=== PATIENT | male | born 1965 | race Caucasian/White ===

== ENCOUNTER 2020-12-06 06:36 | Emergency (ER) | payer BC ==
[2020-12-06 07:37] LABS: Absolute Lymphocytes (CBC) 1.5 K/uL (0.7-4.9); Basophils % 0.6 % (0-1.3); Hematocrit 46.1 % (39.6-49.0); Lymphocytes % 22.2 % (15.3-44.8); MPV 7.6 fL (7.6-11.3); RBC Red Blood Cell Count 5.21 M/uL (4.33-5.43)
[2020-12-06 07:56] LABS: Bilirubin Direct 0.2 mg/dL (0-0.2); Bilirubin Total 0.8 mg/dL (0.2-1.0); Potassium 4.4 mmol/L (3.5-5.1); Protein, Total 7.5 g/dL (6.4-8.2)
[2020-12-06] MEDS ORDERED: ONDANSETRON 4 MG/2 ML VIAL ONE (08:00)
[2020-12-06] MEDS ORDERED: NA CHLORIDE 0.9% 1,000 ML ONE ×2 (08:00→09:49)
[2020-12-06] MEDS ORDERED: FAMOTIDINE 20 MG/2 ML VIAL IV ONE (08:00)
--- NOTE | 2020-12-06 08:33 | RAD REPORT ---
EXAM DESCRIPTION: CT - Abdomen Pelvis W Contrast - 12/06/2020 8:15 am CLINICAL HISTORY: Abdominal pain COMPARISON: none. TECHNIQUE: Computed axial tomography of the abdomen pelvis was obtained. 100 cc Isovue-300 was admin istered intravenously. Oral contrast was not requested which limits evaluation of bowel. All CT scans are performed using dose optimization technique as appropriate and may include automated exposure control or mA/KV adjustment according to patient size. FINDINGS: A 5 millimeter nodule anterior left lung base. Several tiny bilateral lung nodules Several vague low to intermediate density hepatic lesions. These vary in size from a few millimeters to 9 millimeters. Spleen, pancreas, adrenal and kidneys appear unremarkable. There is no evidence of diverticulitis. An abnormal appendix is not seen. Borderline gallbladder distention. Small hiatal hernia. Apparent thickening of the wall of the distal stomach. Small umbilical hernia IMPRESSION: Borderline gallbladder distention Several small hepatic lesions are nonspecific. Further evaluation with unenhanced and enhanced MRI on another day recommended. Small bilateral lung nodules. These may represent metastases or granulomas. Followup CT chest in 3 mo [facility] recommended Apparent thickening of the wall of the distal stomach may be secondary to inflammation or incomplete distention
--- NOTE | 2020-12-06 08:33 | RAD REPORT ---
EXAM DESCRIPTION: Claudio Single View12/06/2020 7:38 am CLINICAL HISTORY: Congestion COMPARISON: none FINDINGS: Small bilateral lung nodules. The heart is normal size IMPRESSION: Small bilateral lung nodules. Please refer to CT report on the same date for recommendat ion
--- NOTE | 2020-12-06 11:33 | EDPHYS ---
Physician Documentation [facility] Name: Raudel Anderson Age: 55 yrs Sex: Male : 1965 Arrival Date: 12/06/2020 Time: 06:43 Bed 16 Private MD: ED Physician Sina Blanchard HPI: 12/06 07:15 This 55 yrs old Male presents to ER via Ambulatory with complaints of kdr Vomiting. 07:15 The patient presents to the emergency department with nausea, that is mild, abdominal kdr pain, of the epigastric area, right upper quadrant and left upper quadrant. 07:16 The patient presents to the emergency department with vomiting, that is intermittent. kdr Onset: The symptoms/episode began/occurred gradually, 1 week(s) ago. Possible causes: unknown. The symptoms are aggravated by nothing. The symptoms are alleviated by nothing. Associated signs and symptoms: Pertinent positives: abdominal pain, nausea, vomiting. Severity of symptoms: At their worst the symptoms were mild moderate just prior to arrival, in the emergency department the symptoms are unchanged. The patient has not experienced similar symptoms in the past. The patient has not recently seen a physician. Patient had 3 glasses of orange juice this morning otherwise he has not eaten much for the last few days. He denies black tarry stools or or bloody stools. Historical: - Allergies: 06:53 No Known Allergies; df1 - Home Meds: 06:53 Unable to obtain [Active]; df1 - PMHx: 06:53 None; df1 - Immunization history:: Client reports receiving the 1st dose of the Covid vaccine. - Social history:: Smoking status: Patient denies any tobacco usage or history of. Patient/guardian denies using alcohol, street drugs. ROS: 07:16 Constitutional: Negative for fever, chills, and weight loss, Eyes: Negative for injury, kdr pain, redness, and discharge, ENT: Negative for injury, pain, and discharge, Neck: Negative for injury, pain, and swelling, Cardiovascular: Negative for chest pain, palpitations, and edema, Back: Negative for injury and pain, : Negative for injury, bleeding, discharge, and swelling, MS/Extremity: Negative for injury and deformity, Skin: Negative for injury, rash, and discoloration, Neuro: Negative for headache, weakness, numbness, tingling, and seizure activity. 07:16 Respiratory: Positive for dyspnea on exertion, shortness of breath, wheezing, Negative for hemoptysis, orthopnea, pleurisy. 07:16 Respiratory: Positive for hemoptysis. 07:16 Abdomen/GI: Positive for abdominal pain, nausea and vomiting, nausea, vomiting, Negative for constipation, abdominal cramps, abdominal distension, anorexia, dysphagia, black/tarry stool, rectal pain, rectal bleeding. Exam: 07:26 Constitutional: This is a well developed, well nourished patient who is awake, alert, kdr and in no acute distress. Head/Face: Normocephalic, atraumatic. Eyes: Pupils equal round and reactive to light, extra-ocular motions intact. Lids and lashes normal. Conjunctiva and sclera are non-icteric and not injected. Cornea within normal limits. Periorbital areas with no swelling, redness, or edema. Neck: Trachea midline, no thyromegaly or masses palpated, and no cervical lymphadenopathy. Supple, full range of motion without nuchal rigidity, or vertebral point tenderness. No Meningismus. Chest/axilla: Normal chest wall appearance and motion. Nontender with no deformity. No lesions are appreciated. Cardiovascular: Regular rate and rhythm with a normal S1 and S2. No gallops, murmurs, or rubs. Normal PMI, no JVD. No pulse deficits. Back: No spinal tenderness. No costovertebral tenderness. Full range of motion. Skin: Warm, dry with normal turgor. Normal color with no rashes, no lesions, and no evidence of cellulitis. MS/ Extremity: Pulses equal, no cyanosis. Neurovascular intact. Full, normal range of motion. Neuro: Awake and alert, GCS 15, oriented to person, place, time, and situation. Cranial nerves II-XII grossly intact. Motor strength 5/5 in all extremities. Sensory grossly intact. Cerebellar exam normal. Normal gait. Psych: Awake, alert, with orientation to person, place and time. Behavior, mood, and affect are within normal limits. 07:26 Respiratory: the patient does not display signs of respiratory distress, Respirations: normal, Breath sounds: rales, rhonchi, that are mild, are located in both bases. Vital Signs: 06:50 BP 114 / 99; Pulse 135; Resp 18; Temp 99.1; Pulse Ox 100% ; Weight 72.57 kg; Height 6 df1 ft. 3 in. (190.50 cm); Pain 5/10; 07:26 BP 111 / 98; Pulse 114; Resp 18; Temp 99.1; Pulse Ox 98% on R/A; aj2 07:41 BP 114 / 93 Supine; Pulse 107; kj1 07:41 BP 113 / 92 Sitting; Pulse 109; kj1 07:41 BP 109 / 84 Standing; Pulse 129; kj1 07:52 BP 126 / 90; Pulse 97; Resp 18; Temp 99.1; Pulse Ox 98% ; aj2 08:50 BP 138 / 101; Pulse 91; Resp 16; Temp 99.1; Pulse Ox 99% ; aj2 09:16 BP 124 / 93 Supine; Pulse 87; Resp 18; Temp 99.1; Pulse Ox 100% ; aj2 09:16 BP 120 / 98 Sitting; Pulse 97; Resp 18; Temp 99.1; Pulse Ox 100% ; aj2 09:16 BP 107 / 91 Standing; Pulse 120; Resp 18; Temp 99.1; Pulse Ox 100% ; aj2 10:38 BP 123 / 95 Supine; Pulse 101; Resp 18; aj2 10:38 BP 121 / 96 LA Sitting (man/reg); Pulse 105; Resp 18; aj2 10:38 BP 102 / 90 Standing; Pulse 123; Resp 18; aj2 12:41 BP 119 / 90; Pulse 84; Resp 18; Temp 98.3; Pulse Ox 100% ; aj2 13:15 BP 147 / 94; Pulse 83; Resp 20; Pulse Ox 100% ; kg 06:50 Body Mass Index 20.00 (72.57 kg, 190.50 cm) df1 MDM: 07:26 Data reviewed: vital signs, nurses notes, lab test result(s), radiologic studies. kdr Counseling: I had a detailed discussion with the patient and/or guardian regarding: the historical points, exam findings, and any diagnostic results supporting the discharge/admit diagnosis, lab results, radiology results. 11:32 Patient medically screened. kdr 12/06 07:13 Order name: Basic Metabolic Panel; Complete Time: 08:30 kdr 12/06 07:13 Order name: CBC with Diff; Complete Time: 08:30 kdr 12/06 07:13 Order name: Hepatic Function; Complete Time: 08:30 kdr 12/06 07:13 Order name: Lipase; Complete Time: 08:30 kdr 12/06 07:14 Order name: Type And Screen; Complete Time: 11:03 kdr 12/06 07:14 Order name: CXR XRAY; Complete Time: 08:55 kdr 12/06 07:14 Order name: CT Abd/Pelvis - IV Contrast Only; Complete Time: 08:55 kdr 12/06 07:41 Order name: D-Dimer kdr 12/06 07:42 Order name: D-Dimer; Complete Time: 08:55 EDMS 12/06 09:11 Order name: SARS-COV-2 RT PCR; Complete Time: 09:45 EDMS 12/06 07:13 Order name: IV Saline Lock; Complete Time: 07:33 kdr 12/06 07:13 Order name: Labs collected and sent; Complete Time: 07:33 kdr 12/06 07:13 Order name: Orthostatic Blood Pressure; Complete Time: 07:41 kdr 12/06 08:57 Order name: Orthostatics: Repeat orthostatics post fluid bolus ; Complete Time: 09:23 kdr Administered Medications: 07:32 Drug: Pepcid (famotidine) 20 mg Route: IVP; Site: left antecubital; aj2 13:23 Follow up: Response: No adverse reaction kg 07:33 Drug: NS 0.9% 1000 ml Route: IV; Rate: 1 bolus; Site: left antecubital; aj2 07:33 Drug: Zofran (Ondansetron) 4 mg Route: IVP; Site: left antecubital; aj2 13:23 Follow up: Response: No adverse reaction kg 09:23 Drug: NS 0.9% 1000 ml Route: IV; Rate: 1 bolus; Site: left antecubital; aj2 13:00 Follow up: Response: No adverse reaction; Marked relief of symptoms; IV Status: kg Completed infusion; IV Intake: 500ml 12:18 Drug: NS 0.9% 500 ml Route: IV; Rate: bolus; Site: left antecubital; aj2 13:22 Follow up: Response: No adverse reaction; IV Status: Completed infusion; IV Intake: kg 500ml Disposition Summary: 12/06/20 11:32 Discharge Ordered Location: Home kdr Problem: new kdr Symptoms: have improved kdr Condition: Stable kdr Diagnosis - Weakness kdr - Dehydration kdr - Vomiting kdr - Nausea with vomiting, unspecified kdr - Abdominal pain, Generalized kdr Followup: kdr - With: Private Physician - When: 2 - 3 days - Reason: If symptoms return, Further diagnostic work-up, Recheck today's complaints, Continuance of care, Re-evaluation by your physician Discharge Instructions: - Discharge Summary Sheet kdr - Nausea and Vomiting, Adult, [id number] kdr - Weakness, [id number] kdr - Abdominal Pain, Adult, [id number] kdr Forms: - Medication Reconciliation Form kdr - Thank You Letter kdr - Work release form iw Prescriptions: - Zofran 4 mg Oral Tablet - take 1 tablet by ORAL route every 4-6 hours As needed; 20 tablet; Refills: 0, kdr Product Selection Permitted - Pepcid 20 mg Oral Tablet - take 1 tablet by ORAL route once daily; 20 tablet; Refills: 0, Product kdr Selection Permitted Signatures: Dispatcher [employer] EDSina Bennett MD MD kdr Bill Caldwell Uyen Zazueta df1 Nydia Butts RN kg Corrections: (The following items were deleted from the chart) 08:13 07:16 CORONAVIRUS+.BRZ ordered. EDAZ EDMS
--- NOTE | 2020-12-06 11:33 | ER ---
Nurse's Notes [facility] Name: Raudel Anderson Age: 55 yrs Sex: Male : 1965 Arrival Date: 12/06/2020 Time: 06:43 Bed 16 Private MD: Diagnosis: Weakness;Dehydration;Vomiting;Nausea with vomiting, unspecified;Abdominal pain, Generalized Presentation: 12/06 06:50 Chief complaint: Patient states: vomiting x 4 days. Coronavirus screen: Vaccine status: df1 Patient reports receiving the 1st dose of the Covid vaccine. The client reports previous COVID testing was negative. Ebola Screen: Patient negative for fever greater than or equal to 101.5 degrees Fahrenheit, and additional compatible Ebola Virus Disease symptoms. Risk Assessment: Do you want to hurt yourself or someone else? Patient reports no desire to harm self or others. Note Pt states vomiting and lower abd pain x 4 days. Last Covid test negative in October/2020. 06:50 Method Of Arrival: Ambulatory df1 06:50 Acuity: VAN 3 df1 13:17 Initial Sepsis Screen: Does the patient meet any 2 criteria? No. Patient's initial kg sepsis screen is negative. Does the patient have a suspected source of infection? No. Patient's initial sepsis screen is negative. Onset of symptoms was December 02, 2020. Triage Assessment: 13:17 General: Appears in no apparent distress. General: Appears in no apparent distress. kg Behavior is calm, cooperative, appropriate for age, quiet. GI: Reports nausea, vomiting. Historical: - Allergies: 06:53 No Known Allergies; df1 - Home Meds: 06:53 Unable to obtain [Active]; df1 - PMHx: 06:53 None; df1 - Immunization history:: Client reports receiving the 1st dose of the Covid vaccine. - Social history:: Smoking status: Patient denies any tobacco usage or history of. Patient/guardian denies using alcohol, street drugs. Screenin:26 Abuse screen: Denies threats or abuse. Denies injuries from another. Nutritional aj2 screening: No deficits noted. Tuberculosis screening: No symptoms or risk factors identified. Fall Risk None identified. Assessment: 07:26 General: Appears in no apparent distress. comfortable, Behavior is calm, cooperative, aj2 appropriate for age. Pain: Complains of pain in right upper quadrant and left upper quadrant Pain does not radiate. Pain currently is 5 out of 10 on a pain scale. Quality of pain is described as crampy, dull, Pain began 1 day ago. Is continuous, Alleviated by nothing. Aggravated by increased activity. GI: Abdomen is flat. 08:07 Reassessment: \T\ CT. aj2 08:50 Reassessment: Patient appears in no apparent distress at this time. Patient and/or aj2 family updated on plan of care and expected duration. Pain level reassessed. Patient is alert, oriented x 3, equal unlabored respirations, skin warm/dry/pink. Patient states symptoms have not improved. 08:50 General: Appears in no apparent distress. Behavior is calm, cooperative. aj2 09:16 Reassessment: Sitting up eating saltine crackers and 4oz of cranberry juice.; well aj2 tolerated. . 12:41 Reassessment: Patient appears in no apparent distress at this time. Patient and/or aj2 family updated on plan of care and expected duration. Pain level reassessed. Patient is alert, oriented x 3, equal unlabored respirations, skin warm/dry/pink. Patient states feeling better. 12:41 Reassessment: Patient states feeling better. aj2 Vital Signs: 06:50 BP 114 / 99; Pulse 135; Resp 18; Temp 99.1; Pulse Ox 100% ; Weight 72.57 kg; Height 6 df1 ft. 3 in. (190.50 cm); Pain 5/10; 07:26 BP 111 / 98; Pulse 114; Resp 18; Temp 99.1; Pulse Ox 98% on R/A; aj2 07:41 BP 114 / 93 Supine; Pulse 107; kj1 07:41 BP 113 / 92 Sitting; Pulse 109; kj1 07:41 BP 109 / 84 Standing; Pulse 129; kj1 07:52 BP 126 / 90; Pulse 97; Resp 18; Temp 99.1; Pulse Ox 98% ; aj2 08:50 BP 138 / 101; Pulse 91; Resp 16; Temp 99.1; Pulse Ox 99% ; aj2 09:16 BP 124 / 93 Supine; Pulse 87; Resp 18; Temp 99.1; Pulse Ox 100% ; aj2 09:16 BP 120 / 98 Sitting; Pulse 97; Resp 18; Temp 99.1; Pulse Ox 100% ; aj2 09:16 BP 107 / 91 Standing; Pulse 120; Resp 18; Temp 99.1; Pulse Ox 100% ; aj2 10:38 BP 123 / 95 Supine; Pulse 101; Resp 18; aj2 10:38 BP 121 / 96 LA Sitting (man/reg); Pulse 105; Resp 18; aj2 10:38 BP 102 / 90 Standing; Pulse 123; Resp 18; aj2 12:41 BP 119 / 90; Pulse 84; Resp 18; Temp 98.3; Pulse Ox 100% ; aj2 13:15 BP 147 / 94; Pulse 83; Resp 20; Pulse Ox 100% ; kg 06:50 Body Mass Index 20.00 (72.57 kg, 190.50 cm) df1 ED Course: 06:43 Patient arrived in ED. bp1 06:52 Sina Blanchard MD is Attending Physician. kdr 06:52 Triage completed. df1 07:21 Bill Caldwell is Primary Nurse. aj2 07:26 No apparent distress. Resting quietly. aj2 07:26 Patient has correct armband on for positive identification. aj2 07:26 No provider procedures requiring assistance completed. IV is patent, is intact. aj2 07:30 Lab(s) recollected, by ED staff, sent to lab. Inserted saline lock: 20 gauge in right kj1 antecubital area, using aseptic technique. Blood collected. 07:33 Basic Metabolic Panel Sent. aj2 07:33 CBC with Diff Sent. aj2 07:33 Hepatic Function Sent. aj2 07:33 Lipase Sent. aj2 07:38 CXR XRAY In Process Unspecified. EDMS 07:52 Arm band placed on. aj2 08:07 D-Dimer Sent. aj2 08:07 D-Dimer Sent. aj2 08:15 CT Abd/Pelvis - IV Contrast Only In Process Unspecified. EDMS 08:50 No apparent distress. Resting quietly. aj2 08:50 Type And Screen Sent. aj2 08:50 IV is patent, is intact. aj2 12:41 No apparent distress. Resting quietly. aj2 12:41 IV is patent, is intact. aj2 13:17 IV discontinued, intact, bleeding controlled, No redness/swelling at site. Pressure kg dressing applied. Administered Medications: 07:32 Drug: Pepcid (famotidine) 20 mg Route: IVP; Site: left antecubital; aj2 13:23 Follow up: Response: No adverse reaction kg 07:33 Drug: NS 0.9% 1000 ml Route: IV; Rate: 1 bolus; Site: left antecubital; aj2 07:33 Drug: Zofran (Ondansetron) 4 mg Route: IVP; Site: left antecubital; aj2 13:23 Follow up: Response: No adverse reaction kg 09:23 Drug: NS 0.9% 1000 ml Route: IV; Rate: 1 bolus; Site: left antecubital; aj2 13:00 Follow up: Response: No adverse reaction; Marked relief of symptoms; IV Status: kg Completed infusion; IV Intake: 500ml 12:18 Drug: NS 0.9% 500 ml Route: IV; Rate: bolus; Site: left antecubital; aj2 13:22 Follow up: Response: No adverse reaction; IV Status: Completed infusion; IV Intake: kg 500ml Intake: 13:00 IV: 500ml; Total: 500ml. kg 13:22 IV: 500ml; Total: 1000ml. kg Outcome: 11:32 Discharge ordered by . kdr 13:16 Discharged to home ambulatory. kg 13:16 Condition: good 13:16 Discharge instructions given to patient, family, Instructed on discharge instructions, follow up and referral plans. Demonstrated understanding of instructions, follow-up care. 13:25 Patient left the ED. ap3 13:34 Prescriptions given X called in 2 prescriptions to Darlin Dickson , left voice mail iw Signatures: Dispatcher [employer] EDMS Sina Blanchard MD MD kdr Williams, Irene, RN RN iw Prokisch, Amanda, RN RN ap3 Rose Summers kj1 Roseline Chavira Kristen, RN RN kg Jenkins, Angelea aj2 Uyen Young df1 Corrections: (The following items were deleted from the chart) 08:13 07:48 CORONAVIRUS+ drawn and sent. [facility]
[2020-12-06] MEDS ORDERED: NA CHLORIDE 0.9% 500 ML ONE (12:47)
[2020-12-06 13:58] VITALS: O2SAT 100
[2020-12-06 14:01] VITALS: TEMP 98.3
[2020-12-06 14:02] VITALS: BP 147/94
== END 2020-12-06 13:25 | disposition home or self-care (01) ==
LOC: ER 06:36
DX: E86.0 Dehydration (principal); R53.1 Weakness; R10.84 Generalized abdominal pain; Z20.822 Contact with and (suspected) exposure to COVID-19
CPT/HCPCS: 96361; 85025; 80048; 36415; 86900; 86850; 86901; 85379; 80076; 83690; 74177; 71045; 96375; 96374; 99284; U0003; Q9967; J7040; J7030 ×2; J2405

== ENCOUNTER 2024-03-08 12:49 | Inpatient (IN) | payer BC, SELFPAY ==
--- NOTE | 2024-03-08 13:24 | RAD REPORT ---
EXAM: CT brain without contrast HISTORY: Right-sided weakness/numbness. COMPARISON: None TECHNIQUE: Multiple contiguous axial images were obtained and a CT of the brain without contrast. Sagittal and coronal reformats were performed. Automated exposure control, adjustment of the mA and/or kV according to patient size, and/or itera tive reconstruction. Unless otherwise specified, incidental findings do not require dedicated imaging follow-u FINDINGS: An intracranial bleed is not seen Ventricles are normal caliber No extra-axial fluid collection noted Vague small low-density left basal ganglia. No fluid within the visualized sinuses or mastoids noted. IMPRESSION: Vague small low-density left basal ganglia. This is equivocal for a lacunar infarct which could be ac eduardo or chronic. MRI of the brain would be helpful for further evaluation. from the emergency room was notified at 1:17 PM March 08, 2024
[2024-03-08 13:27] LABS: Absolute Basophils 0.1 K/uL (0-0.5); Absolute Lymphocytes (CBC) 2.9 K/uL (0.7-4.9); Absolute Monocytes 0.8 K/uL (0.1-1.3); Absolute Neutrophil 8.4 K/uL (1.8-8.0); Basophils % 0.7 % (0-1.3); Eosinophils % 0.3 % (0-4.4); Hematocrit 42.1 % (39.6-49.0); Lymphocytes % 23.9 % (15.3-44.8); MCH 25.8 pg (27.0-35.0); MCHC 30.9 g/dL (32.0-36.0); MCV 83.5 fL (80-100); MPV 7.3 fL (7.6-11.3); Monocytes % 6.6 % (3.3-12.3); Neutrophils % 68.5 % (41.7-73.7); Platelets 442 thou/uL (152-406); RBC Red Blood Cell Count 5.04 M/uL (4.33-5.43); Red Cell Distribution Width 16.7 % (12.1-15.2)
--- NOTE | 2024-03-08 13:32 | RAD REPORT ---
EXAMINATION: Neck Angio CLINICAL INDICATION: Right-sided weakness/numbness TECHNIQUE: Axial CT images were obtained from the aortic arch to the skull base after intravenous adm inistration of 100 cc Isovue-370 utilizing angiographic protocol. Multiplanar reformats, as well as 3D post-processing (maximum intensity projection images, volume rendered images and/or shaded surface rendered images) were generated and reviewed. One or more of the following dose reduction techniques were used: Automated exposure control, adjustment of the mA and/or kV according to patient size, and/or iterative reconstruction. Unless otherwise specified, incidental findings do not require dedicated imaging follow-up. COMPARISON: No prior exam. FINDINGS: The visualized aortic arch and great vessels do not demonstrate a significant abnormality The common carotid, internal carotid, external carotid and vertebral arteries bilaterally are unremar kable. No significant stenosis noted. A dissection is not seen. Methods for NASCET criteria: Mild stenosis, 0% to 49%; Moderate stenosis 50% to 69%; Severe stenosis, 70% to 99% IMPRESSION: No acute vascular abnormality displayed
--- NOTE | 2024-03-08 13:32 | RAD REPORT ---
EXAMINATION: CTA HEAD CLINICAL INDICATION: Right-sided weakness/numbness TECHNIQUE: Axial CT images were obtained through the head after 100 cc Isovue-370 intravenous contras t utilizing angiographic protocol with 3D post-processing (maximum intensity projection images, volume rendered images and/or shaded surface rendered images). One or more of the following dose red uction techniques were used: Automated exposure control, adjustment of the mA and/or kV according to patient size, and/or iterative reconstruction. Unless otherwise specified, incidental findings do not require dedicated imaging follow-up. COMPARISON: None FINDINGS: Distal internal carotid, basilar, anterior cerebral, middle cerebral and posterior cerebral arteries do not demonstrate a significant stenosis An aneurysm not noted. No large vessel occlusion IMPRESSION: No acute vascular abnormality displayed
[2024-03-08 14:07] LABS: PT Prothrombin Time 11.3 SECONDS (9.4-12.5); PTT, Activated Partial Thromb 32.5 SECONDS (24.3-36.9); Protime INR 1.01
[2024-03-08 14:09] LABS: ALT/SGPT < 14 U/L (16-61); AST/SGOT < 10 U/L (15-37); Albumin 3.5 g/dL (3.4-5.0); Albumin/Globulin Ratio 0.9 (1.1-1.8); Alkaline Phosphatase 85 U/L (45-117); BUN Blood Urea Nitrogen 13 mg/dL (7-18); Bicarbonate 29 mEq/L (21-32); Bilirubin Direct 0.2 mg/dL (0-0.2); Bilirubin Indirect, Calculated 0.7 mg/dL (0.2-0.8); Bilirubin Total 0.9 mg/dL (0.2-1.0); Glomerular Filtration Rate 98 ml/min (=/>90); Glucose Level 102 mg/dL (74-106); Magnesium 2.2 mg/dL (1.6-2.4); Protein, Total 7.5 g/dL (6.4-8.2); Sodium Level 133 mEq/L (136-145); Troponin High Sensitivity 5.6 pg/mL (<58.9)
--- NOTE | 2024-03-08 14:29 | RAD REPORT ---
EXAMINATION: MRI BRAIN WITHOUT CONTRAST CLINICAL INDICATION: Right-sided weakness/numbness TECHNIQUE: Multiplanar multisequence MR images of the brain were obtained without intravenous contras t. Unless otherwise specified, incidental findings do not require dedicated imaging follow-up. COMPARISON: Head CT March 08, 2024 FINDINGS: Small areas of abnormal signal within the basal ganglia have the appearance of old infarctions. Mild abnormal signal periventricular, deep and subcortical white matter probably ischemic Diffusion weighted/ADC mapping does not demonstrate evidence of an acute infarction. Ventricles are normal caliber. No extra-axial fluid collection. No fluid within the sinuses/mastoid seen IMPRESSION: No acute intracranial abnormalities displayed
--- NOTE | 2024-03-08 14:29 | EDPHYS ---
Physician Documentation [facility] Name: Raudel Anderson Age: 58 yrs Sex: Male : 1965 Arrival Date: 03/08/2024 Time: 12:49 Bed 23 Private MD: MARTHA Physician Chidi Mirza HPI: 03/08 13:23 This 58 yrs old Male presents to ER via Wheelchair with complaints of Numbness - of sb4 right side, Confused. 13:35 patient with history of several neck surgeries presents today with complaints of right sb4 neck pain that began last night at 1800 with associated numbness and weakness of right arm, leg, and face. also reports confusion. denies any difficulty speaking or swallowing. states his gait feels unsteady as well. he denies any cardiac history. denies any recent changes in medications. Historical: - Allergies: 15:00 No Known Allergies; me1 - PMHx: 15:00 Parkinson's disease; me1 - PSHx: 15:00 neck surgery; me1 - Immunization history:: Adult Immunizations unknown. - Infectious Disease History:: Denies. - Social history:: Smoking status: Patient denies any tobacco usage or history of. ROS: 13:35 Constitutional: Negative for fever, chills, and weight loss, sb4 13:35 Neuro: Positive for gait disturbance, numbness, tingling, weakness, 13:35 All other systems are negative, Exam: 13:35 Constitutional: This is a well developed, well nourished patient who is awake, alert, sb4 and in no acute distress. Head/Face: Normocephalic, atraumatic. Eyes: Extra-ocular motions intact. Periorbital areas with no swelling, redness, or edema. ENT: Mucous membranes moist. Cardiovascular: Regular rate and rhythm with a normal S1 and S2. Respiratory: No increased work of breathing, no retractions or nasal flaring. Abdomen/GI: Soft, non-tender, no distension. Skin: Warm, dry with normal turgor. Normal color with no rashes, no lesions, and no evidence of cellulitis. MS/ Extremity: Pulses equal, no cyanosis. Neurovascular intact. Full, normal range of motion. 13:35 Neuro: Orientation: to person, place, time \T\ situation. Mentation: is normal, lucid, able to follow commands, Memory: is normal, Cranial nerves: extraocular movements are intact, Facial palsy and sensory deficits are absent. no gross hearing deficit,. Speech is slowed, Cerebellar function: heel to carrasco testing is normal, Motor: is normal, moves all fours, Sensation: numbness, that is mild, tingling, that is mild, Gait: is steady, Vital Signs: 13:15 BP 102 / 94; Pulse 93; Resp 18; Pulse Ox 98% ; me1 13:30 BP 103 / 78; Pulse 110; Resp 20; Temp 97.8; Pulse Ox 96% on R/A; me1 13:37 BP 104 / 97; Pulse 94; Resp 16; Pulse Ox 98% ; me1 14:30 BP 106 / 94; Pulse 92; Resp 16; Pulse Ox 98% ; me1 14:45 BP 108 / 94; Pulse 93; Resp 15; Pulse Ox 99% ; me1 15:00 BP 114 / 95; Pulse 92; Resp 16; Pulse Ox 99% ; me1 15:15 BP 111 / 87; Pulse 92; Resp 15; Pulse Ox 98% ; me1 15:30 BP 113 / 87; Pulse 87; Resp 16; Pulse Ox 99% ; me1 15:45 BP 110 / 90; Pulse 87; Resp 15; Pulse Ox 100% ; me1 16:00 BP 104 / 88; Pulse 88; Resp 16; Pulse Ox 99% ; me1 16:15 BP 117 / 90; Pulse 95; Resp 16; Pulse Ox 99% ; me1 16:30 BP 101 / 77; Pulse 88; Resp 16; Pulse Ox 97% ; me1 16:45 BP 109 / 79; Pulse 89; Resp 16; Pulse Ox 96% ; me1 17:00 BP 109 / 81; Pulse 88; Resp 16; Pulse Ox 98% ; me1 17:15 BP 106 / 77; Pulse 87; Resp 16; Pulse Ox 99% ; me1 17:30 BP 113 / 88; Pulse 103; Resp 16; Pulse Ox 98% ; me1 17:45 BP 101 / 78; Pulse 96; Resp 15; Pulse Ox 96% ; me1 NIH Stroke Scale Scores: 13:20 NIHSS Score: 4 me1 14:31 NIHSS Score: 4 sb4 MDM: 13:03 Medical Screening Exam initiated sb4 13:39 Differential diagnosis: CVA, TIA, electrolyte abnormality, drug abuse, alcohol sb4 intoxication, UTI. 13:56 Data reviewed: vital signs, nurses notes, lab test result(s), EKG, radiologic studies, sb4 I have discussed the patient's presentation/case with the attending Emergency Department Physician; and as a result, I will admit patient. Consideration of Admission/Observation Patient was admitted/placed on observation. Counseling: I had a detailed discussion with the patient and/or guardian regarding the historical points, exam findings, and any diagnostic results supporting the discharge/admit diagnosis, the presence of at least one elevated blood pressure reading (>120/80) during this emergency department visit, lab results, radiology results, the need for further work-up and treatment in the hospital. 03/08 13:09 Order name: Basic Metabolic Panel; Complete Time: 14:09 sb4 03/08 13:09 Order name: CBC with Diff; Complete Time: 13:31 sb4 03/08 13:09 Order name: Hepatic Function; Complete Time: 14:09 sb4 03/08 13:09 Order name: High Sensitivity Troponin; Complete Time: 14:09 sb4 03/08 13:09 Order name: Magnesium; Complete Time: 14:09 sb4 03/08 13:09 Order name: Protime (+inr); Complete Time: 14:08 sb4 03/08 13:09 Order name: Ptt, Activated; Complete Time: 14:08 sb4 03/08 13:09 Order name: UDS; Complete Time: 19:05 sb4 03/08 13:23 Order name: UAM; Complete Time: 15:50 sb4 03/08 13:43 Order name: Glucose, Ancillary Testing; Complete Time: 13:43 EDMS 03/08 15:25 Order name: Basic Metabolic Panel EDMS 03/08 15:25 Order name: Basic Metabolic Panel EDMS 03/08 15:25 Order name: Basic Metabolic Panel EDMS 03/08 15:25 Order name: Basic Metabolic Panel EDMS 03/08 15:25 Order name: Basic Metabolic Panel EDMS 03/08 15:25 Order name: CBC with Automated Diff EDMS 03/08 15:25 Order name: CBC with Automated Diff EDMS 03/08 15:25 Order name: Lipid Profile EDMS 03/08 15:25 Order name: Lipid Profile EDMS 03/08 15:25 Order name: Magnesium EDNJ 03/08 15:25 Order name: Magnesium EDNJ 03/08 13:09 Order name: Head angio; Complete Time: 13:32 EDMS 03/08 13:09 Order name: Neck Angio; Complete Time: 13:32 EDMS 03/08 13:09 Order name: CT Stroke Brain w/o Contrast; Complete Time: 13:25 sb4 03/08 13:09 Order name: Stroke CXR 1 View; Complete Time: 15:11 sb4 03/08 14:02 Order name: Brain Wo Cont; Complete Time: 14:30 EDMS 03/08 15:25 Order name: Echo with Doppler EDMS 03/08 15:20 Order name: CONS Physician Consult EDNJ 03/08 15:25 Order name: IRF Screen EDNJ 03/08 15:25 Order name: Occupational Therapy Consult EDNJ 03/08 15:25 Order name: Physical Therapy Consult EDNJ 03/08 15:25 Order name: Speech Therapy Consult EDNJ 03/08 13:09 Order name: Accucheck; Complete Time: 13:39 sb4 03/08 13:09 Order name: Cardiac monitoring; Complete Time: 13:39 sb4 03/08 13:09 Order name: EKG - Nurse/Tech; Complete Time: 13:39 sb4 03/08 13:09 Order name: IV Saline Lock; Complete Time: 13:39 sb4 03/08 13:09 Order name: Labs collected and sent; Complete Time: 13:39 sb4 03/08 13:09 Order name: NPO; Complete Time: 13:39 sb4 03/08 13:09 Order name: O2 Per Protocol; Complete Time: 13:39 sb4 03/08 13:09 Order name: O2 Sat Monitoring; Complete Time: 13:39 sb4 03/08 13:09 Order name: Stroke Swallow Screen sb4 EC:33 Rate is 93 beats/min. Rhythm is regular, Normal Sinus Rhythm. PA interval is normal at sb4 166 msec. QRS interval is normal at 82 msec. QT interval is normal at 342 msec. No Q waves. T waves are Normal. No ST changes noted. Clinical impression: Normal ECG. Interpreted by me. Reviewed by me. Administered Medications: 15:31 Drug: foLIC Acid IVPB 1 mg IVPB once Route: IVPB; Site: left antecubital; me1 15:31 Follow up: Response: No adverse reaction; IV Status: Completed infusion me1 15:31 Drug: Clopidogrel PO 75 mg PO once Route: PO; me1 16:04 Follow up: Response: No adverse reaction me1 15:31 Drug: Aspirin PO 81 mg PO once Route: PO; me1 16:04 Follow up: Response: No adverse reaction me1 Point of Care Testing: Blood Glucose: 13:43 Blood Glucose: 94 mg/dL; me1 Ranges: Critical Glucose Levels:Adult <50 mg/dl or >400 mg/dl <40 mg/dl or >180 mg/dl Disposition Summary: 03/08/24 14:29 Hospitalization Ordered Notes: Hospitalization Status: Inpatient Admission sb4 Provider: Chris Maradiaga sb4 Condition: Fair sb4 Problem: new sb4 Symptoms: are unchanged sb4 Bed/Room Type: Standard sb4 Location: Telemetry/MedSurg (Inpatient)(03/08/24 19:03) rv1 Room Assignment: 221(03/08/24 19:03) rv1 Diagnosis - Other cerebral infarction - left lacunar sb4 Forms: - Medication Reconciliation Form sb4 - SBAR form sb4 - Leadership Thank You Letter sb4 Critical care time excluding procedures: 13:38 Critical care time: Bedside Care: 15 minutes, Consultation: 15 minutes, Family sb4 Intervention: 5 minutes. Total time: 35 minutes NIH Stroke Scale - NIH Stroke Score Date: 03/08/2024 Time: 13:20 Total Score = 4 10. Dysarthria (speech clarity - read or repeat words) - 1(Mild to Moderate) 11. Extinction and Inattention (visual/tactile/auditory/spatial/personal) - 0(No abnormality) 1a. Level of Consciousness (LOC) - 0(Alert) 1b. Level of Consciousness (LOC) (Month \T\ Age) - 0(Both) 1c. LOC Commands (Open \T\ Closes Eyes/Machine Puller Over) - 0(Both) 2. Best Gaze (Lateral Gaze Paresis) - 0(Normal) 3. Visual Field Loss - 0(No visual loss) 4. Facial Palsy - 0(Normal) 5a. Left Arm: Motor (10-second hold) - 0(No drift) 5b. Right Arm: Motor (10-second hold) - 0(No drift) 6a. Left Leg: Motor (5-second hold - always test supine) - 0(No drift) 6b. Right Leg: Motor (5-second hold - always test supine) - 1(Drift) 7. Limb Ataxia (finger/nose \T\ heel/carrasco - test with eyes open) - 1(Present in one limb) 8. Sensory Loss (pinprick arms/legs/face) - 1(Mild to moderate loss) 9. Best Language: Aphasia (description/naming/reading) - 0(No aphasia) Initials: me1 NIH Stroke Scale - NIH Stroke Score Date: 03/08/2024 Time: 14:31 Total Score = 4 10. Dysarthria (speech clarity - read or repeat words) - 1(Mild to Moderate) 11. Extinction and Inattention (visual/tactile/auditory/spatial/personal) - 0(No abnormality) 1a. Level of Consciousness (LOC) - 0(Alert) 1b. Level of Consciousness (LOC) (Month \T\ Age) - 0(Both) 1c. LOC Commands (Open \T\ Closes Eyes/Machine Puller Over) - 0(Both) 2. Best Gaze (Lateral Gaze Paresis) - 0(Normal) 3. Visual Field Loss - 0(No visual loss) 4. Facial Palsy - 0(Normal) 5a. Left Arm: Motor (10-second hold) - 0(No drift) 5b. Right Arm: Motor (10-second hold) - 0(No drift) 6a. Left Leg: Motor (5-second hold - always test supine) - 0(No drift) 6b. Right Leg: Motor (5-second hold - always test supine) - 1(Drift) 7. Limb Ataxia (finger/nose \T\ heel/carrasco - test with eyes open) - 1(Present in one limb) 8. Sensory Loss (pinprick arms/legs/face) - 1(Mild to moderate loss) 9. Best Language: Aphasia (description/naming/reading) - 0(No aphasia) Initials: sb4 Addendum: 03/10/2024 12:39 Co-signature as Attending Physician, Chidi Mirza MD I agree with the [facility] assessment and plan of care. Signatures: Dispatcher [employer] Chidi Russell MD MD cha Leal, Jahala, RN RN jl7 Jennifer Murguia PA-C PAMalC sb4 Radha Meyers rv1 Josseline Tee, RN RN me1 Corrections: (The following items were deleted from the chart) 03/08 13:10 13:10 BASIC METABOLIC PANEL+C.LAB.BRZ ordered. EDMS EDMS 13:10 13:10 CBC+H.LAB.BRZ ordered. EDMS EDMS 13:10 13:10 HEPATIC FUNCTION+C.LAB.BRZ ordered. EDMS EDMS 13:10 13:10 Troponin High Sensitivity+C.LAB.BRZ ordered. EDMS EDMS 13:10 13:10 MAGNESIUM+C.LAB.BRZ ordered. EDMS EDMS 13:10 13:10 PROTIME (+INR)+COAG.LAB.BRZ ordered. EDMS EDMS 13:10 13:10 PTT, ACTIVATED+COAG.LAB.BRZ ordered. EDMS EDMS 13:10 13:10 URINE DRUG SCREEN+UC.LAB.BRZ ordered. EDMS EDMS 13:10 13:10 Head Angio+CT.RAD.BRZ ordered. EDMS EDMS 13:10 13:10 Neck Angio+CT.RAD.BRZ ordered. EDMS EDMS 13:10 13:10 CT-STROKE BRAIN W/O CONTRAST+CT.RAD.BRZ ordered. EDMS EDMS 13:10 13:10 Chest Single View+RAD.RAD.BRZ ordered. EDMS EDMS 13:22 13:08 Head Brain Wo Cont ordered. EDMS EDMS 13:27 13:27 MR STROKE PROTOCOL+MRI.RAD.BRZ ordered. EDMS EDMS 14:31 13:31 NIHSS Score: 2 sb4 sb4 14:31 14:30 NIHSS Score: 3 sb4 sb4 17:50 14:29 Telemetry/MedSurg (Inpatient) sb4 jl7 17:50 14:29 sb4 jl7 19:03 17:50 [facility] ER HOLD jl7 rv1 19:03 17:50 ERHOLD- jl7 rv1
--- NOTE | 2024-03-08 14:29 | ER ---
Nurse's Notes [facility] Name: Raudel Anderson Age: 58 yrs Sex: Male : 1965 Arrival Date: 03/08/2024 Time: 12:49 Bed 23 Private MD: Diagnosis: Other cerebral infarction-left lacunar Presentation: 03/08 13:00 Chief complaint: Patient states: Right sided neck pain, numbness to right side of face, jl7 right arm and feeling off balance with confusion since 1800 yesterday. Coronavirus screen: At this time, the client does not indicate any symptoms associated with coronavirus-19. 13:00 Method Of Arrival: Wheelchair jl7 13:00 Ebola Screen: No symptoms or risks identified at this time. An acute neurological jl7 deficit is present. The patient has been moved to a treatment area. Pre-hospital glucose is not applicable to this patient. Initial Sepsis Screen: Does the patient meet any 2 criteria? No. Patient's initial sepsis screen is negative. Does the patient have a suspected source of infection? No. Patient's initial sepsis screen is negative. Risk Assessment: Do you want to hurt yourself or someone else? Patient reports no desire to harm self or others. 13:00 Acuity: VAN 2 jl7 13:00 Onset of symptoms was March 07, 2024 at 18:00. jl7 Triage Assessment: 13:00 The onset of the patients symptoms was March 07, 2024 at 18:00. General: Appears in jl7 no apparent distress. uncomfortable, Behavior is calm, cooperative, appropriate for age. Pain: Complains of pain in right side of neck. Neuro: Reports numbness in face and right arm weakness in right arm. Stroke Activation: Physician: ED Attending; Name: ; Notified At: ; Arrived At: Physician: Mid-Level Provider; Name: DOMINGO Gonzales; Notified At: ; Arrived At: Physician: [not used]; Name: ; Notified At: ; Arrived At: Physician: [not used]; Name: ; Notified At: ; Arrived At: Physician: [not used]; Name: ; Notified At: ; Arrived At: Historical: - Allergies: 15:00 No Known Allergies; me1 - PMHx: 15:00 Parkinson's disease; me1 - PSHx: 15:00 neck surgery; me1 - Immunization history:: Adult Immunizations unknown. - Infectious Disease History:: Denies. - Social history:: Smoking status: Patient denies any tobacco usage or history of. Screenin:37 [facility] ED Fall Risk Assessment (Adult) History of falling in the last 3 months, me1 including since admission No falls in past 3 months (0 pts) Confusion or Disorientation No (0 pts) Intoxicated or Sedated No (0 pts) Impaired Gait Yes (1 pt) Mobility Assist Device Used Yes (1 pt) Altered Elimination No (0 pt) Score/Fall Risk Level 0 - 2 = Low Risk Maintained a safe environment, Provided non-skid footwear, Hourly rounding (assess needs \T\ fall precautionary measures) done. Abuse screen: Denies threats or abuse. Nutritional screening: No deficits noted. Tuberculosis screening: No symptoms or risk factors identified. Assessment: 13:20 VAN Scoring: Arm Drift: Minor drift Visual Disturbance: No visual disturbance noted. me1 Aphasia: No aphasia noted. Neglect: No neglect noted. VAN Scoring: Neglect:. [place] Swallow Protocol Exclusion Criteria: Unable to remain alert for testing: No NPO for medical/surgical reason by provider order No Head-of-bed restricted <30 degrees Yes Brief Cognitive Screen What is your name? Normal, Where are you right now? Normal, What year is it? Normal. Oral Mechanism Examination Facial Symmetry: Normal, Motion: Normal, Lip Closure: Normal, Oral Mechanism Result: Normal. 3 oz Water Swallow Challenge: Pt able to drink all water without stopping, coughing, choking or throat clearing: Yes Result: PASS MD Notified: Jennifer Murguia PA-C. TNKase (Tenecteplase) Screening: Indications: Treatment will start within 4.5 hours onset of symptoms: No. Contraindications: Not Applicable. 13:20 General: Appears comfortable, slender, well groomed, well developed, Behavior is calm, me1 cooperative, appropriate for age, Reports R neck pain, numbness to R face, R arm and reports feeling off balance with some confusion since 18:00 yesterday. Pain: Denies pain. Neuro: Level of Consciousness is awake, alert, obeys commands, Oriented to person, place, time, situation, Appropriate for age Nursing Education Consultant are equal bilaterally Moves all extremities. Full function Gait is unsteady, Speech is normal, Facial symmetry appears normal, Pupils are PERRLA, Numbness in right arm and face. Cardiovascular: Patient's skin is warm and dry. Respiratory: Airway is patent Respiratory effort is even, unlabored, Respiratory pattern is regular, symmetrical. GI: No signs and/or symptoms were reported involving the gastrointestinal system. : No signs and/or symptoms were reported regarding the genitourinary system. EENT: No signs and/or symptoms were reported regarding the EENT system. Derm: Skin is intact, is healthy with good turgor, Skin is pink, warm \T\ dry. Musculoskeletal: Reports numbness in right arm and face. 13:37 Reassessment: To MRI. me1 14:28 Reassessment: Return from MRI. me1 Vital Signs: 13:15 BP 102 / 94; Pulse 93; Resp 18; Pulse Ox 98% ; me1 13:30 BP 103 / 78; Pulse 110; Resp 20; Temp 97.8; Pulse Ox 96% on R/A; me1 13:37 BP 104 / 97; Pulse 94; Resp 16; Pulse Ox 98% ; me1 14:30 BP 106 / 94; Pulse 92; Resp 16; Pulse Ox 98% ; me1 14:45 BP 108 / 94; Pulse 93; Resp 15; Pulse Ox 99% ; me1 15:00 BP 114 / 95; Pulse 92; Resp 16; Pulse Ox 99% ; me1 15:15 BP 111 / 87; Pulse 92; Resp 15; Pulse Ox 98% ; me1 15:30 BP 113 / 87; Pulse 87; Resp 16; Pulse Ox 99% ; me1 15:45 BP 110 / 90; Pulse 87; Resp 15; Pulse Ox 100% ; me1 16:00 BP 104 / 88; Pulse 88; Resp 16; Pulse Ox 99% ; me1 16:15 BP 117 / 90; Pulse 95; Resp 16; Pulse Ox 99% ; me1 16:30 BP 101 / 77; Pulse 88; Resp 16; Pulse Ox 97% ; me1 16:45 BP 109 / 79; Pulse 89; Resp 16; Pulse Ox 96% ; me1 17:00 BP 109 / 81; Pulse 88; Resp 16; Pulse Ox 98% ; me1 17:15 BP 106 / 77; Pulse 87; Resp 16; Pulse Ox 99% ; me1 17:30 BP 113 / 88; Pulse 103; Resp 16; Pulse Ox 98% ; me1 17:45 BP 101 / 78; Pulse 96; Resp 15; Pulse Ox 96% ; me1 NIH Stroke Scale Scores: 13:20 NIHSS Score: 4 me1 14:31 NIHSS Score: 4 sb4 ED Course: 12:52 Patient arrived in ED. im 13:00 Arm band placed on right wrist. jl7 13:02 Josseline Tee, RN is Primary Nurse. me1 13:03 Jennifer Murguia PA-C is PHCP. sb4 13:03 Chidi Mirza MD is Attending Physician. sb4 13:13 Triage completed. jl7 13:19 Initial lab(s) drawn, by tn, sent to lab. Inserted saline lock: 22 gauge in left jl7 antecubital area, using aseptic technique. Blood collected. Flushed with 10 mL NS. 13:20 Head angio In Process Unspecified. EDMS 13:21 Neck Angio In Process Unspecified. EDMS 13:21 CT Stroke Brain w/o Contrast In Process Unspecified. EDMS 13:37 Patient has correct armband on for positive identification. Bed in low position. Call me1 light in reach. Side rails up X2. Provided Education on: POC. Verbalized understanding.. Client placed on continuous cardiac and pulse oximetry monitoring. NIBP monitoring applied. alarm security or surveillance monitor on. Pulse ox on. NIBP on. 13:37 No provider procedures requiring assistance completed. me1 13:39 Basic Metabolic Panel Sent. me1 13:39 Hepatic Function Sent. me1 13:39 High Sensitivity Troponin Sent. me1 13:39 Magnesium Sent. me1 13:39 Protime (+inr) Sent. me1 13:39 Ptt, Activated Sent. me1 14:02 Brain Wo Cont In Process Unspecified. EDMS 14:09 Stroke CXR 1 View In Process Unspecified. EDMS 14:27 Chris Maradiaga MD is Hospitalizing Provider. sb4 15:38 UAM Sent. me1 15:38 UDS Sent. me1 15:38 Urine collected: clean catch specimen, cloudy. me1 18:03 Patient admitted, IV remains in place. me1 Administered Medications: 15:31 Drug: foLIC Acid IVPB 1 mg IVPB once Route: IVPB; Site: left antecubital; me1 15:31 Follow up: Response: No adverse reaction; IV Status: Completed infusion me1 15:31 Drug: Clopidogrel PO 75 mg PO once Route: PO; me1 16:04 Follow up: Response: No adverse reaction me1 15:31 Drug: Aspirin PO 81 mg PO once Route: PO; me1 16:04 Follow up: Response: No adverse reaction me1 Medication: 13:37 VIS not applicable for this client. me1 Point of Care Testing: Blood Glucose: 13:43 Blood Glucose: 94 mg/dL; me1 Ranges: Outcome: 14:29 Decision to Hospitalize by Provider. sb4 18:03 Admitted to ER Hold. [facility]. me1 18:03 Condition: stable 18:03 Instructed on the need for admit, 19:13 Admitted to Med/surg accompanied by tech, via wheelchair, room 221, with chart, Report me1 called to faxed, receipt confirmed with Alissa. 19:13 Condition: stable 19:13 Instructed on the need for admit, 19:53 Patient left the ED. me1 NIH Stroke Scale - NIH Stroke Score Date: 03/08/2024 Time: 13:20 Total Score = 4 10. Dysarthria (speech clarity - read or repeat words) - 1(Mild to Moderate) 11. Extinction and Inattention (visual/tactile/auditory/spatial/personal) - 0(No abnormality) 1a. Level of Consciousness (LOC) - 0(Alert) 1b. Level of Consciousness (LOC) (Month \T\ Age) - 0(Both) 1c. LOC Commands (Open \T\ Closes Eyes/Mobile Unit Assistant) - 0(Both) 2. Best Gaze (Lateral Gaze Paresis) - 0(Normal) 3. Visual Field Loss - 0(No visual loss) 4. Facial Palsy - 0(Normal) 5a. Left Arm: Motor (10-second hold) - 0(No drift) 5b. Right Arm: Motor (10-second hold) - 0(No drift) 6a. Left Leg: Motor (5-second hold - always test supine) - 0(No drift) 6b. Right Leg: Motor (5-second hold - always test supine) - 1(Drift) 7. Limb Ataxia (finger/nose \T\ heel/carrasco - test with eyes open) - 1(Present in one limb) 8. Sensory Loss (pinprick arms/legs/face) - 1(Mild to moderate loss) 9. Best Language: Aphasia (description/naming/reading) - 0(No aphasia) Initials: me1 NIH Stroke Scale - NIH Stroke Score Date: 03/08/2024 Time: 14:31 Total Score = 4 10. Dysarthria (speech clarity - read or repeat words) - 1(Mild to Moderate) 11. Extinction and Inattention (visual/tactile/auditory/spatial/personal) - 0(No abnormality) 1a. Level of Consciousness (LOC) - 0(Alert) 1b. Level of Consciousness (LOC) (Month \T\ Age) - 0(Both) 1c. LOC Commands (Open \T\ Closes Eyes/Mobile Unit Assistant) - 0(Both) 2. Best Gaze (Lateral Gaze Paresis) - 0(Normal) 3. Visual Field Loss - 0(No visual loss) 4. Facial Palsy - 0(Normal) 5a. Left Arm: Motor (10-second hold) - 0(No drift) 5b. Right Arm: Motor (10-second hold) - 0(No drift) 6a. Left Leg: Motor (5-second hold - always test supine) - 0(No drift) 6b. Right Leg: Motor (5-second hold - always test supine) - 1(Drift) 7. Limb Ataxia (finger/nose \T\ heel/carrasco - test with eyes open) - 1(Present in one limb) 8. Sensory Loss (pinprick arms/legs/face) - 1(Mild to moderate loss) 9. Best Language: Aphasia (description/naming/reading) - 0(No aphasia) Initials: sb4 Signatures: Dispatcher [employer] Delvin Bertrand RN RN jl7 Jennifer Murguia PAMalC PA-C sb4 Wandy Keys Michelle, RN RN me1 Corrections: (The following items were deleted from the chart) 14:56 13:00 Chief complaint: Patient states: Right sided neck pain, numbness to right me1 side of face, right arm and feeling off balance with confusion since 1800 yesterday. jl7 17:43 17:00 BP 106 / 77; Pulse 87bpm; Resp 16bpm; Pulse Ox 99%; me1 me1
--- NOTE | 2024-03-08 15:01 | RAD REPORT ---
Procedure: Chest Single View HISTORY: Cva COMPARISON: 2020 FINDINGS: The lungs appear clear of acute infiltrate. No significant pleural effusion noted. The heart is normal size. IMPRESSION: No acute abnormality is displayed.
[2024-03-08] MEDS ORDERED: ASPIRIN 81 MG CHEWABLE TABLET ONE (15:28)
[2024-03-08] MEDS ORDERED: CLOPIDOGREL 75 MG TABLET ONE (15:28)
[2024-03-08] MEDS ORDERED: FOLIC ACID 5 MG/ML VIAL ONE (15:29)
--- NOTE | 2024-03-08 15:32 | P.HP ---
Certification for Inpatient Patient admitted to: Inpatient <Vanessa Dodge - Last Filed: 03/08/24 16:18> Patient History Date of Service: 03/08/24 Reason for admission: CVA right hemiparesis History of Present Illness: 58-year-old male with a past medical history of chronic pain, multiple neck surgergies, suspected Parkinson's disease, presents to the emergency room with right sided weakness. Reports symptoms started at 6 PM last night. He reports right sided extremity weakness, unsteady gait, he reports right sided facial/ sided numbness, intermittent confusion, mild difficulty speaking. He reports difficulty swallowing from previous neck surgeries, does better with soft diet. NIH stroke scale 3, , Right lower extremity weakness right-sided numbness, mild dysarthria, right-sided numbness, He denies no reported dizziness, abdominal pain, chest pain, edema, no reported falls/trauma, no use of DME, He reports seeing Dr. Quintana starting on carbidopa for Parkinson's. He reports history of chronic pain with multiple neck surgeries,taking hydrocodone 10, 3 times daily as needed. Plan to admit for CVA right sided weakness with neurology to consult - Past Medical/Surgical History -: Parkinson's -: Chronic pain -: Dysphagia -: Multiple neck surgeries - Social History Smoking Status: Never smoker Alcohol use: No Caffeine use: No Place of Residence: Home <WesleywendyVanessa - Last Filed: 03/08/24 16:18> Date of Service: 03/08/24 <MaradiagaChris Rahul - Last Filed: 03/15/24 04:06> Allergies No Known Allergies Allergy (Unverified 03/08/24 15:35) Review of Systems 10-point ROS is otherwise unremarkable <WesleyVanessa nguyen - Last Filed: 03/08/24 16:18> Physical Examination - Physical Exam General: Alert, In no apparent distress, Oriented x3 HEENT: Normocephalic, PERRLA Neck: Supple, 2+ carotid pulse no bruit Respiratory: Clear to auscultation bilaterally, Normal air movement Cardiovascular: Normal pulses, Regular rate/rhythm, Normal S1 S2 Capillary refill: <2 Seconds Gastrointestinal: Normal bowel sounds, Soft and benign Musculoskeletal: No clubbing, No swelling Integumentary: No breakdown, No significant lesion, No tenderness/swelling Neurological: Other (Right-sided weakness), Abnormal gait, Abnormal speech (Mild dysarthria), Abnormal sensation - Studies Laboratory Data (last 24 hrs) 03/08/24 03/08/24 03/08/24 13:20 13:20 13:20 WBC 12.30 H Hgb 13.0 L Hct 42.1 Plt Count 442 H PT 11.3 INR 1.01 APTT 32.5 Sodium 133 L Potassium 4.0 BUN 13 Creatinine 0.89 Glucose 102 Magnesium 2.2 Total Bilirubin 0.9 AST < 10 L ALT < 14 L Alkaline Phosphatase 85 <Vanessa Dodge - Last Filed: 03/08/24 16:18> Assessment and Plan - Problems (Diagnosis) (1) Left sided lacunar infarction Status: Acute (2) Right hemiparesis Status: Acute (3) Dysarthria Status: Acute (4) Parkinson disease Status: Acute (5) Unsteady gait Status: Acute (6) Chronic pain Status: Acute - Plan Assessment plan Admit to MedSurg, telemetry -Neurology consult -Permissive hypertension -Aspirin, Plavix, antilipid, folic acid, -PT, OT, speech eval -Fall precautions -Echo ordered -java web services developer consult for discharge planning pending a PT eval -Resume home Parkinson's medications, chronic pain -MRI Small areas of abnormal signal within the basal ganglia have the appearance of old infarctions.Mild abnormal signal periventricular, deep and subcortical white matter probably ischemic Diffusion weighted/ADC mapping does not demonstrate evidence of an acute infarction.Ventricles are normal caliber. No extra-axial fluid collection.No fluid within the sinuses/mastoid seen IMPRESSION: No acute intracranial abnormalities displayed -CTA of the neck No acute vascular abnormality displayed -CTA of the head No acute vascular abnormality displayed Full code DVT Lovenox Diet cardiac Disposition pending hospital course - Advance Directives Does patient have a Living Will: No Does patient have a Durable POA for Healthcare: No - Code Status/Comfort Care Comfort Measures: Palliative Care Critical Care: No Time Spent Managing Pts Care (In Minutes): 55 <Vanessa Dodge - Last Filed: 03/08/24 16:18> Date of Service: 03/08/24 Chart has been reviewed. Events of the last 24 hours have been noted. Case discussed with IAN. I performed a substantial part of the MDM during this patient's care today. I personally made or approved the documented management plan and acknowledge its risk of complications. I agree with the findings and documentation provided in the IAN's notes <Chris Maradiaga - Last Filed: 03/15/24 04:06>
[2024-03-08 15:48] LABS: Sqamous Epithelial <5 /HPF (None Seen); Urine Bacteria None Seen /HPF (<20); Urine Bilirubin NEGATIVE (Negative); Urine Blood Negative (Negative); Urine Clarity Clear (Clear); Urine Color Light-Yellow (Yellow); Urine Culture Reflex Order NOT NEEDED; Urine Glucose NEGATIVE (Negative); Urine Ketones NEGATIVE (Negative); Urine Micro Reflex YN NO BILL MICROSCOPIC; Urine Mucus 1+ /HPF (None Seen); Urine Nitrite NEGATIVE (Negative); Urine Protein TRACE (Negative); Urine RBC <5 /HPF (None Seen); Urine Urobilinogen Normal (Normal); Urine WBC <5 /HPF (<5)
[2024-03-08 15:49] LABS: Specific Gravity > 1.030 (1.005-1.030)
[2024-03-08] MEDS: NA CHLORIDE 0.9% 1,000 ML IV SCH (16:00)
[2024-03-08 18:06] VITALS: BMI 20.6
[2024-03-08] MEDS ORDERED: NA CHLORIDE 0.9% 1,000 ML ONE (18:57)
[2024-03-08] MEDS ORDERED: HYDROCODONE/APAP 10/325 TAB ONE (18:57)
[2024-03-08] MEDS: HYDROCODONE/APAP 10/325 TAB PO PRN (18:59)
[2024-03-08 19:05] LABS: Barbiturates NEGATIVE (NEGATIVE); Benzodiazepines NEGATIVE (NEGATIVE); Cocaine NEGATIVE (NEGATIVE); METHAMPHETAM NEGATIVE (NEGATIVE); Methadone NEGATIVE (NEGATIVE); Opiates NEGATIVE (NEGATIVE); Phencyclidine NEGATIVE (NEGATIVE); THC Cannibis NEGATIVE (NEGATIVE)
[2024-03-08 20:41] VITALS: O2SAT 96
[2024-03-08] MEDS: ACETAMINOPHEN 500 MG TAB PO PRN (21:33)
[2024-03-08] MEDS: ATORVASTATIN 40 MG TAB PO SCH (21:33)
[2024-03-09 07:03] LABS: Absolute Basophils 0.1 K/uL (0-0.5); Absolute Lymphocytes (CBC) 2.4 K/uL (0.7-4.9); Absolute Monocytes 0.6 K/uL (0.1-1.3); Absolute Neutrophil 4.7 K/uL (1.8-8.0); Basophils % 0.9 % (0-1.3); Eosinophils % 0.6 % (0-4.4); Hematocrit 36.6 % (39.6-49.0); MCH 27.1 pg (27.0-35.0); MCHC 32.8 g/dL (32.0-36.0); MCV 82.7 fL (80-100); MPV 7.4 fL (7.6-11.3); Monocytes % 8.2 % (3.3-12.3); Neutrophils % 59.3 % (41.7-73.7); Nucleated Red Blood Cells % 0.1 % (0-0); Platelets 386 thou/uL (152-406); RBC Red Blood Cell Count 4.43 M/uL (4.33-5.43); Red Cell Distribution Width 16.8 % (12.1-15.2)
[2024-03-09 07:23] LABS: Anion Gap 6.1 mEq/L (5.0-15.0); Magnesium 2.1 mg/dL (1.6-2.4); Potassium 4.1 mEq/L (3.5-5.1)
[2024-03-09] MEDS: FOLIC ACID 1 MG TABLET PO SCH (08:52)
[2024-03-09] MEDS: ENOXAPARIN 40 MG/0.4 ML SQ SCH (08:52)
[2024-03-09 12:25] VITALS: BP 127/78; TEMP 97.3
--- NOTE | 2024-03-09 16:58 | P.DS ---
Admission Date: 03/08/24 Discharge Date: 03/09/24 Reason for Admission: CVA right hemiparesis Brief History of Present Illness: 58-year-old male with a past medical history of chronic pain, multiple neck surgergies, suspected Parkinson's disease, presents to the emergency room with right sided weakness. Reports symptoms started at 6 PM last night. He reports right sided extremity weakness, unsteady gait, he reports right sided facial/ sided numbness, intermittent confusion, mild difficulty speaking. He reports difficulty swallowing from previous neck surgeries, does better with soft diet. NIH stroke scale 3, , Right lower extremity weakness right-sided numbness, mild dysarthria, right-sided numbness, He denies no reported dizziness, abdominal pain, chest pain, edema, no reported falls/trauma, no use of DME, He reports seeing Dr. Quintana starting on carbidopa for Parkinson's. He reports history of chronic pain with multiple neck surgeries,taking hydrocodone 10, 3 times daily as needed. Plan to admit for CVA right sided weakness with neurology to consult - Physical Exam General: Alert, In no apparent distress, Oriented x3 HEENT: Normocephalic, PERRLA Neck: Supple, 2+ carotid pulse no bruit Respiratory: Clear to auscultation bilaterally, Normal air movement Cardiovascular: Normal pulses, Regular rate/rhythm, Normal S1 S2 Capillary refill: <2 Seconds Gastrointestinal: Normal bowel sounds, Soft and benign Musculoskeletal: No clubbing, No swelling Integumentary: No breakdown, No significant lesion, No tenderness/swelling Neurological: Other oriented x 3, no focal deficits, Hospital Course: 58-year-old male with a past medical history of chronic pain, multiple neck surgergies, suspected Parkinson's disease, presents to the emergency room with right sided weakness. Reports symptoms started at 6 PM last night. He reports right sided extremity weakness, unsteady gait, he reports right sided facial/ sided numbness, intermittent confusion, mild difficulty speaking. He reports difficulty swallowing from previous neck surgeries, does better with soft diet. NIH stroke scale 3, , Right lower extremity weakness right-sided numbness, mild dysarthria, right-sided numbness, He reports seeing Dr. Quintana starting on carbidopa for Parkinson's. He reports history of chronic pain with multiple neck surgeries,taking hydrocodone 10, 3 times daily as needed. He was admitted for CVA right sided weakness with neurology to consult. MRI was done shows chonic ischemic changes. He was treated with Aspirin, Plavix, antilipid, folic acid, -PT, ordered, PT was completed, no deficits noted, no DME recommended. Resume home Parkinson's medications, chronic pain. Patient request to discharge home for chrisitmas. will resume Plavix, aspirin, lipitor after discharge. Follow-up with neurology after discharge, patient's admission symptoms had resolved prior to discharge, patient requesting to discharge home, neurology notified prior to discharge, will resume home meds for CVA at discharge Assessment TIA symptoms resolved within 12 Left-sided lacunar chronic infarct, no acute noted Right hemihemiparesis resolved Dysarthria resolved Parkinson's disease follow-up with neurology after discharge, resume home meds Unsteady gait, fall precautions, improved prior to discharge patient was seen by physical therapy, do not no DME rec Chronic pain, continue home medications after discharge, follow-up with PCP after Imaging -MRI Small areas of abnormal signal within the basal ganglia have the appearance of old infarctions.Mild abnormal signal periventricular, deep and subcortical white matter probably ischemic Diffusion weighted/ADC mapping does not demonstrate evidence of an acute infarction.Ventricles are normal caliber. No extra-axial fluid collection.No fluid within the sinuses/mastoid seen IMPRESSION: No acute intracranial abnormalities displayed -CTA of the neck No acute vascular abnormality displayed -CTA of the head No acute vascular abnormality displayed Continue home medicines as previously prescribed GOAL: Clear understanding of disease process INSTRUCTIONS: Physician Discharge Instructions: - Follow up with Neurology after Discharge -Follow-up with PCP in 1 to 2 weeks -Please call Dr. Maradiaga at [phone] if any questions regarding hospital stay -Please call nursing station at [phone] if any nursing or medication questions -Return to the emergency room if symptoms worsen Diet: ADA, low sodium Activity: Fall precautions <Vanessa Dodge - Last Filed: 03/09/24 16:53> Admission Date: 03/08/24 Discharge Date: 03/09/24 Hospital Course: Chart has been reviewed. Events of the last 24 hours have been noted. Case discussed with IAN. I performed a substantial part of the MDM during this patient's care today. I personally made or approved the documented management plan and acknowledge its risk of complications. I agree with the findings and documentation provided in the IAN's notes <MaradiagaTim grijalvavicki Rahul - Last Filed: 03/15/24 04:06> Disposition: ROUTINE DISCHARGE Discharge Condition: GOOD Vital Signs/Physical Exam: Temp Pulse Resp BP Pulse Ox 97.3 F 89 16 127/78 98 03/09/24 12:00 03/09/24 12:00 03/09/24 12:00 03/09/24 12:00 03/09/24 12:00 Laboratory Data at Discharge: WBC 7.90 thou/uL (4.3-10.9) 03/09/24 06:13 Hgb 12.0 g/dL (13.6-17.9) L 03/09/24 06:13 Hct 36.6 % (39.6-49.0) L 03/09/24 06:13 Plt Count 386 thou/uL (152-406) 03/09/24 06:13 PT 11.3 SECONDS (9.4-12.5) 03/08/24 13:20 INR 1.01 03/08/24 13:20 APTT 32.5 SECONDS (24.3-36.9) 03/08/24 13:20 Sodium 135 mEq/L (136-145) L 03/09/24 06:13 Potassium 4.1 mEq/L (3.5-5.1) 03/09/24 06:13 BUN 16 mg/dL (7-18) 03/09/24 06:13 Creatinine 0.57 mg/dL (0.70-1.30) L 03/09/24 06:13 Glucose 89 mg/dL (74-106) 03/09/24 06:13 Magnesium 2.1 mg/dL (1.6-2.4) 03/09/24 06:13 Total Bilirubin 0.9 mg/dL (0.2-1.0) 03/08/24 13:20 AST < 10 U/L (15-37) L 03/08/24 13:20 ALT < 14 U/L (16-61) L 03/08/24 13:20 Alkaline Phosphatase 85 U/L (45-117) 03/08/24 13:20 Triglycerides 101 mg/dL (<150) 03/09/24 06:13 Cholesterol 195 mg/dL (<200) 03/09/24 06:13 HDL Cholesterol 44 mg/dL (40-60) 03/09/24 06:13 Cholesterol/HDL Ratio 4.43 03/09/24 06:13 <Juan Dodgey - Last Filed: 03/09/24 16:53> Vital Signs/Physical Exam: Temp Pulse Resp BP Pulse Ox 97.3 F 89 16 127/78 98 03/09/24 12:00 03/09/24 12:00 03/09/24 12:00 03/09/24 12:00 03/09/24 12:00 Laboratory Data at Discharge: WBC 7.90 thou/uL (4.3-10.9) 03/09/24 06:13 Hgb 12.0 g/dL (13.6-17.9) L 03/09/24 06:13 Hct 36.6 % (39.6-49.0) L 03/09/24 06:13 Plt Count 386 thou/uL (152-406) 03/09/24 06:13 PT 11.3 SECONDS (9.4-12.5) 03/08/24 13:20 INR 1.01 03/08/24 13:20 APTT 32.5 SECONDS (24.3-36.9) 03/08/24 13:20 Sodium 135 mEq/L (136-145) L 03/09/24 06:13 Potassium 4.1 mEq/L (3.5-5.1) 03/09/24 06:13 BUN 16 mg/dL (7-18) 03/09/24 06:13 Creatinine 0.57 mg/dL (0.70-1.30) L 03/09/24 06:13 Glucose 89 mg/dL (74-106) 03/09/24 06:13 Magnesium 2.1 mg/dL (1.6-2.4) 03/09/24 06:13 Total Bilirubin 0.9 mg/dL (0.2-1.0) 03/08/24 13:20 AST < 10 U/L (15-37) L 03/08/24 13:20 ALT < 14 U/L (16-61) L 03/08/24 13:20 Alkaline Phosphatase 85 U/L (45-117) 03/08/24 13:20 Triglycerides 101 mg/dL (<150) 03/09/24 06:13 Cholesterol 195 mg/dL (<200) 03/09/24 06:13 HDL Cholesterol 44 mg/dL (40-60) 03/09/24 06:13 Cholesterol/HDL Ratio 4.43 03/09/24 06:13 <Chris Maradiaga - Last Filed: 03/15/24 04:06> Diet: Low sodium Activity: Fall precautions Time spent managing pt's care (in minutes): 45 <Vanessa Dodge - Last Filed: 03/09/24 16:53> <Chris Maradiaga - Last Filed: 03/15/24 04:06> Home Medications: Carbidopa/Levodopa [Carbidopa-Levo ER 25-100 Tab] 25 mg PO Q8HR 03/08/24 Cyclobenzaprine [Flexeril*] 20 mg PO TID PRN 03/08/24 Hydrocodone 10/APAP 325 [[place] 10/325*] 10 tab PO Q6H PRN 03/08/24 Aspirin [Aspirin EC 325 MG] 325 mg PO DAILY 30 Days #30 tab 03/09/24 Atorvastatin Calcium [Lipitor] 40 mg PO BEDTIME 30 Days #30 tab 03/09/24 Clopidogrel Bisulfate [Plavix] 75 mg PO DAILY 30 Days #30 tab 03/09/24 Folic Acid 1 mg PO 30 MIN BEFORE HS 30 Days #30 tab 03/09/24 New Medications: Aspirin [Aspirin EC 325 MG] 325 mg PO DAILY 30 Days #30 tab Folic Acid 1 mg PO 30 MIN BEFORE HS 30 Days #30 tab Atorvastatin Calcium [Lipitor] 40 mg PO BEDTIME 30 Days #30 tab Clopidogrel Bisulfate [Plavix] 75 mg PO DAILY 30 Days #30 tab Physician Discharge Instructions: 58-year-old male with a past medical history of chronic pain, multiple neck surgergies, suspected Parkinson's disease, presents to the emergency room with right sided weakness. Reports symptoms started at 6 PM last night. He reports right sided extremity weakness, unsteady gait, he reports right sided facial/ sided numbness, intermittent confusion, mild difficulty speaking. He reports difficulty swallowing from previous neck surgeries, does better with soft diet. NIH stroke scale 3, , Right lower extremity weakness right-sided numbness, mild dysarthria, right-sided numbness, He reports seeing Dr. Quintana starting on carbidopa for Parkinson's. He reports history of chronic pain with multiple neck surgeries,taking hydrocodone 10, 3 times daily as needed. He was admitted for CVA right sided weakness with neurology to consult. MRI was done shows chonic ischemic changes. He was treated with Aspirin, Plavix, antilipid, folic acid, -PT, OT, speech eval, PT was completed, no deficits noted, no DME recommended. Resume home Parkinson's medications, chronic pain. Patient request to discharge home for chrisitmas. will resume Plavix, aspirin, lipitor after discharge. Imaging -MRI Small areas of abnormal signal within the basal ganglia have the appearance of old infarctions.Mild abnormal signal periventricular, deep and subcortical white matter probably ischemic Diffusion weighted/ADC mapping does not demonstrate evidence of an acute infarction.Ventricles are normal caliber. No extra-axial fluid collection.No fluid within the sinuses/mastoid seen IMPRESSION: No acute intracranial abnormalities displayed -CTA of the neck No acute vascular abnormality displayed -CTA of the head No acute vascular abnormality displayed Continue home medicines as previously prescribed GOAL: Clear understanding of disease process INSTRUCTIONS: Physician Discharge Instructions: - Follow up with Neurology after Discharge -Follow-up with PCP in 1 to 2 weeks -Please call Dr. Maradiaga at [phone] if any questions regarding hospital stay -Please call nursing station at [phone] if any nursing or medication questions -Return to the emergency room if symptoms worsen Diet: ADA, low sodium Activity: Fall precautions Followup: Delfino Quintana MD [ASSOCIATE-ACTIVE - CAN ADMIT] - Romeo Paulino FNP [Primary Care Provider] -
--- NOTE | 2024-03-11 13:44 | EKG ---
Test Date: 2024-03-08 Test Time: 13:27:50 Final Tester: MEASUREMENT RESULTS: Intervals: Rate: 93 OR: 166 QRSD: 82 QT: 342 QTc: 425 Banks: P: 6 OR: 166 QRS: -10 T: -8 INTERPRETIVE STATEMENTS: Normal sinus rhythm Normal ECG No previous ECG available for comparison Electronically Signed On 03-11-24 13:37:56 BROACH SETTER by Denver Beebe
== END 2024-03-09 14:19 | disposition home or self-care (01) | DRG 69 ==
LOC: ER 12:49 → ERHOLD 15:16 → 2ND 19:20
PROVIDERS: ADMIT Hospitalist; ATTEND Hospitalist
DX: G45.9 Transient cerebral ischemic attack, unspecified (principal); G81.91 Hemiplegia, unspecified affecting right dominant side; G89.29 Other chronic pain; M54.2 Cervicalgia; G20.A1 Parkinson's disease without dyskinesia, without mention of fluctuations; R29.704 NIHSS score 4; R41.0 Disorientation, unspecified; Z79.82 Long term (current) use of aspirin; Z79.02 Long term (current) use of antithrombotics/antiplatelets; Z79.899 Other long term (current) drug therapy
CPT/HCPCS: 36415; 70450; 70496; 70498; 70551; 71045; 80048; 80061; 80076; 80307; 81001; 82565; 82947; 83735; 84484; 85025; 85610; 85730; 93005; 96374; 97116; 97161; 99285; J1650; J7030; Q9967